=== PATIENT | female | born 1970 | race African-American/Black ===

== ENCOUNTER 2024-03-16 12:30 | Emergency (ER) | payer BC, SELFPAY ==
[2024-03-16 12:39] VITALS: BP 167/119; PULSE 80; RESP 16; TEMP 36.1; O2SAT 100
[2024-03-16 12:44] VITALS: BP 176/102
--- NOTE | 2024-03-16 13:25 | ED.DENTAL ---
HPI - Dental/Oral General Chief complaint: Dental/Oral Stated complaint: Facial Swelling/Right Side Time Seen by Provider: 03/16/24 13:20 Mode of arrival: ambulatory Limitations: no limitations History of Present Illness HPI Narrative: 53-year-old female presents with concern of for right upper dental pain. Reports she had pain for several days, the pain improved but she woke up this morning with right-sided facial swelling. She has been alternate Tylenol ibuprofen without much relief. MD Complaint: tooth pain Related Data Allergies Allergy/AdvReac Type Severity Reaction Status Date / Time No Known Allergies Allergy Verified 03/16/24 13:31 Review of Systems Review of Systems: CONSTITUTIONAL: Denies malaise, chills, sweats, or fever. EYES: Denies visual changes ENT: Denies rhinorrhea, congestion, sinus pain, otalgia or sore throat. Reports right upper dental pain CARDIOVASCULAR: Denies chest pain, palpitations RESPIRATORY: Denies cough or dyspnea. SKIN: Denies rash or itching. MUSCULOSKELETAL: Denies myalgia. NEUROLOGIC: Denies numbness, weakness, or headache. All systems reviewed & are unremarkable except as noted in HPI and below PMFSH Comments At time of signature, agree with nursing past medical, surgical, social and family history. There is no relevant family history pertinent to the presenting complaint Exam Narrative: GENERAL: Well-appearing, well-nourished, and in no acute distress. HEAD: Normocephalic, atraumatic. EYES: PERRLA, sclera clear ENT: Nares clear, turbinates pink, no rhinorrhea or epistaxis. Mucous membranes moist. TM pearly stephens with sharp light reflex bilaterally; no tragal tenderness. Oropharynx without erythema or lesions. Tonsils not enlarged and without exudate. No Missing teeth, broken teeth, caries. Right mild facial swelling and tenderness noted above teeth 3 and 4 NECK: Supple. No lymphadenopathy. CHEST: No respiratory distress. Speaks in full sentences. HEART: Regular rate and rhythm. SKIN: Warm, dry, no visible rash. NEURO: Alert and oriented x3. PSYCH: Normal mood and affect Course Course Emergency Course: Patient is aware of diagnosis, understands and agrees to treatment plan. Anticipatory guidance given. Patient agrees to follow-up as directed and is aware of reasons to seek care at the emergency department. Portions of this record may have been created with voice recognition software Level of Care: [facility] Visit Vital Signs Vital signs: Vital Signs Temperature 97 F L 03/16/24 12:39 Pulse Rate 80 03/16/24 12:39 Respiratory Rate 16 03/16/24 12:39 Blood Pressure 167/119 H 03/16/24 12:39 Pulse Oximetry 100 03/16/24 12:39 Oxygen Delivery Room Air 03/16/24 12:39 Temperature 97 F L 03/16/24 12:39 Pulse Rate 80 03/16/24 12:39 Respiratory Rate 16 03/16/24 12:39 Blood Pressure 176/102 H 03/16/24 12:44 Pulse Oximetry 100 03/16/24 12:39 Oxygen Delivery Room Air 03/16/24 12:39 Reviewed. MDM - Dental/Oral MDM Narrative Medical decision making narrative: I evaluated this in the express care. History is obtained from patient who is an independent historian and physical exam was performed.? Available medical records were reviewed. ? Exam findings and relevant testing show no acute concerns or changes; patient is non-toxic appearing and is in no distress. Patients pain and complaint coupled with physical findings are consistant with dentalgia. There are no focal signs of space occupying lesions that are compromising to the airway; no dysphagia, odynophagia, dysphonia, or dyspnea. No uvular deviation or soft palate edema. Patient is non-toxic appearing. The floor of the mouth is soft with no signs of Pérez's Angina; no induration below mandible, no neck pain. Patient is without trismus or drooling and able to swallow secretions. Patient is felt appropriate for discharge home with dental follow up. ? Differential diagnos
== END 2024-03-16 13:35 | disposition home or self-care (01) ==
PROVIDERS: Emergency Provider Nurse Practitioner
DX: K08.89 Other specified disorders of teeth and supporting structures (principal)
CPT/HCPCS: 99213; G0463